=== PATIENT | female | born 1935 | race Caucasian/White ===

== ENCOUNTER 2019-06-07 09:46 | Outpatient (CLI) | payer MEDICARE, MEDICAID | END 2019-06-07 23:59 | disposition home or self-care (01) | LOC: VAS 09:46 | PROVIDERS: ATTEND Family Medicine | DX: I65.23 Occlusion and stenosis of bilateral carotid arteries (principal); R42 Dizziness and giddiness | CPT/HCPCS: 93880 ==

== ENCOUNTER 2021-04-18 10:26 | Outpatient (CLI) | payer MEDICARE, MEDICAID | END 2021-04-18 23:59 | disposition home or self-care (01) | LOC: RAD 10:26 | PROVIDERS: ATTEND Family Medicine | DX: M47.816 Spondylosis without myelopathy or radiculopathy, lumbar region (principal); M48.061 Spinal stenosis, lumbar region without neurogenic claudication; N28.1 Cyst of kidney, acquired | CPT/HCPCS: 72148 ==

== ENCOUNTER 2021-06-16 08:12 | Emergency (ER) | payer OTHER, MEDICAID ==
[~2021-06-16] VITALS: Ht 152.4 cm; Wt 88.6 kg
[~2021-06-16 08:12] MED LIST: DEXA4TAB67 PO; DEXL30CA3 PO; LEVO100T9 PO; LISI20TA28 PO; METO-395 PO
--- NOTE | 2021-06-16 08:23 | NUR ---
PTS DAUGHTER AWILDA CORRALES CALLED AND LEFT PHONE #:
[2021-06-16 09:13] LABS: BASOPHILS % (AUTO) 0.7 % (0-1); EOSINOPHILS # (AUTO) 0.1 X10'3 (0-0.9); EOSINOPHILS % (AUTO) 0.9 % (0-6); HEMATOCRIT 39.7 % (35.0-45.0); HEMOGLOBIN 13.4 g/dl (12.0-16.0); LYMPHOCYTES # (AUTO) 1.6 X10'3 (1.1-4.8); LYMPHOCYTES % (AUTO) 27.9 % (21-51); MEAN CORPUSCULAR HEMOGLOBIN 30.9 PG (27.0-31.0); MEAN CORPUSCULAR HGB CONC 33.7 g/dL (33.0-36.5); MEAN CORPUSCULAR VOLUME 91.7 FL (78-98); MEAN PLATELET VOLUME 8.5 FL (7.4-10.4); MONOCYTES # (AUTO) 0.6 X10'3 (0-0.9); MONOCYTES % (AUTO) 10.9 % (2-12); NEUTROPHILS # (AUTO) 3.3 X10'3 (1.8-7.7); NEUTROPHILS % (AUTO) 59.6 % (42-75); PLATELET COUNT 236 X10'3 (140-440); RED BLOOD COUNT 4.33 X10'6 (4.20-5.60); RED CELL DISTRIBUTION WIDTH 15.5 % (11.5-14.5); WHITE BLOOD COUNT 5.6 X10'3 (4.5-11.0)
[2021-06-16 09:25] LABS: ALANINE AMINOTRANSFERASE 25 U/L (12-78); ALBUMIN 3.4 G/DL (3.4-5.0); ALBUMIN/GLOBULIN RATIO 0.8 (1.1-1.5); ALKALINE PHOSPHATASE 105 IU/L (46-116); ASPARTATE AMINO TRANSFERASE 20 U/L (10-37); BILIRUBIN,TOTAL 0.6 MG/DL (0.1-1.0); BLOOD UREA NITROGEN 13 MG/DL (7-18); BUN/CREATININE RATIO 14.9 (6.6-38.0); CALCIUM 9.4 MG/DL (8.5-10.1); CREATININE 0.87 MG/DL (0.40-0.90); GLUCOSE 147 MG/DL (70-104); TOTAL CARBON DIOXIDE 27.2 MMOL/L (24-32); TOTAL PROTEIN 7.5 G/DL (6.4-8.2); eGFR 62 ML/MIN
[2021-06-16 09:29] LABS: ANION GAP 6 (8-16); CHLORIDE 104 MMOL/L (99-107); POTASSIUM 4.2 MMOL/L (3.5-5.1); SODIUM 137 MMOL/L (135-145)
[2021-06-16 09:34] LABS: MAGNESIUM 1.9 MG/DL (1.5-2.4)
[2021-06-16] MEDS ORDERED: magnesium 2GM in 50ml NS 50 ML IV ONE (10:35)
[2021-06-16] MEDS ORDERED: AMIO200T61 PO (10:54)
--- NOTE | 2021-06-16 11:54 | NUR ---
PATIENT ASLEEP, NO SIGNS OF DISTRESS NOTED, IVF INFUSION WNL.
[2021-06-16 12:57] VITALS: BP 116/70
== END 2021-06-16 12:58 | disposition home or self-care (01) ==
LOC: ER 08:13
DX: I48.0 Paroxysmal atrial fibrillation (principal); I10 Essential (primary) hypertension; E11.9 Type 2 diabetes mellitus without complications; Z86.16 Personal history of COVID-19; Z95.0 Presence of cardiac pacemaker; Z88.8 Allergy status to other drugs, medicaments and biological substances; Z79.899 Other long term (current) drug therapy
CPT/HCPCS: 36415; 71045; 80053; 83735; 83880; 84484; 85025; 93005; 96365; 96366; 99285; J3475

== ENCOUNTER 2022-02-28 14:50 | Emergency (ER) | payer OTHER, MEDICAID ==
[~2022-02-28] VITALS: Ht 152.4 cm; Wt 93.2 kg
[2022-02-28 15:25] VITALS: BP 153/88
[2022-02-28 19:38] LABS: CLARITY,URINE CLEAR (Clear); COLOR,URINE YELLOW (Yellow); GLUCOSE, URINE NEGATIVE (Neg); KETONES,URINE NEGATIVE (Neg); LEUKOCYTE ESTERASE ,URINE NEGATIVE (Neg); NITRITES, URINE NEGATIVE (Neg); OCCULT BLOOD,URINE TRACE-INTACT (Neg); PH,URINE 5.5 (4.8-8.0); PROTEIN,URINE NEGATIVE (Neg); UROBILINOGEN,URINE 0.2 E.U/dL (0.2-1.0)
[2022-02-28 19:52] LABS: BASOPHILS % (AUTO) 0.3 % (0-1); EOSINOPHILS # (AUTO) 0.1 X10'3 (0-0.9); EOSINOPHILS % (AUTO) 2.2 % (0-6); HEMOGLOBIN 11.7 g/dl (12.0-16.0); LYMPHOCYTES # (AUTO) 1.2 X10'3 (1.1-4.8); LYMPHOCYTES % (AUTO) 21.1 % (21-51); MEAN CORPUSCULAR HEMOGLOBIN 29.9 PG (27.0-31.0); MEAN CORPUSCULAR HGB CONC 33.3 g/dL (33.0-36.5); MEAN CORPUSCULAR VOLUME 89.7 FL (78-98); MEAN PLATELET VOLUME 8.1 FL (7.4-10.4); MONOCYTES # (AUTO) 0.8 X10'3 (0-0.9); MONOCYTES % (AUTO) 14.4 % (2-12); NEUTROPHILS # (AUTO) 3.6 X10'3 (1.8-7.7); PLATELET COUNT 223 X10'3 (140-440); RED CELL DISTRIBUTION WIDTH 14.6 % (11.5-14.5); WHITE BLOOD COUNT 5.9 X10'3 (4.5-11.0)
[2022-02-28 20:05] LABS: BACTERIA,URINE FEW /HPF (Neg); MUCUS STRANDS NONE SEEN /LPF (Neg); RBC,URINE 0-2 /HPF (0-2); SQUAMOUS EPITHELIAL CELL,UR MODERATE /LPF (FEW); UA COLLECTION TYPE CLN CATCH MIDSTREAM; WBC,URINE 0-4 /HPF (0-4)
[2022-02-28 20:15] LABS: ALANINE AMINOTRANSFERASE 170 U/L (12-78); ALBUMIN 3.5 G/DL (3.4-5.0); ALBUMIN/GLOBULIN RATIO 0.9 (1.1-1.5); ALKALINE PHOSPHATASE 220 IU/L (46-116); ANION GAP 6 (8-16); ASPARTATE AMINO TRANSFERASE 75 U/L (10-37); BILIRUBIN,TOTAL 0.7 MG/DL (0.1-1.0); BLOOD UREA NITROGEN 10 MG/DL (7-18); BUN/CREATININE RATIO 9.3 (6.6-38.0); CHLORIDE 101 MMOL/L (99-107); CREATININE 1.07 MG/DL (0.40-0.90); GLUCOSE 122 MG/DL (70-104); POTASSIUM 3.3 MMOL/L (3.5-5.1); SODIUM 138 MMOL/L (135-145); TOTAL CARBON DIOXIDE 31.2 MMOL/L (24-32); TOTAL PROTEIN 7.3 G/DL (6.4-8.2); eGFR 49 ML/MIN
--- NOTE | 2022-02-28 20:23 | NUR ---
STOOL SAMPLE TO LAB. STOOL IS LIQUID/WATER AND GREEN.
[2022-02-28] MEDS ORDERED: potassium Cl 20 mEq SR tablet PO ONE (20:55)
[2022-03-01 07:23] LABS: C DIFF SPECIMEN=DIARRHEA? ACCEPTABLE; C DIFFICILE TOXINS A&B NEGATIVE (Neg)
== END 2022-02-28 21:56 | disposition home or self-care (01) ==
LOC: ER 14:51
DX: R19.7 Diarrhea, unspecified (principal); R10.9 Unspecified abdominal pain; I11.9 Hypertensive heart disease without heart failure; E11.9 Type 2 diabetes mellitus without complications; Z88.5 Allergy status to narcotic agent; Z95.1 Presence of aortocoronary bypass graft
CPT/HCPCS: 36415; 80053; 81001; 83690; 85025; 86709; 87045; 87046; 87324; 87449; 99283

== ENCOUNTER 2022-08-03 14:27 | Emergency (ER) | payer BC, MEDICAID ==
[~2022-08-03] VITALS: Ht 152.4 cm; Wt 88.6 kg
[2022-08-03 14:40] LABS: BASOPHILS % (AUTO) 0.5 % (0-1); EOSINOPHILS # (AUTO) 0.1 X10'3 (0-0.9); EOSINOPHILS % (AUTO) 1.3 % (0-6); HEMATOCRIT 37.4 % (35.0-45.0); HEMOGLOBIN 12.6 g/dl (12.0-16.0); LYMPHOCYTES # (AUTO) 3.1 X10'3 (1.1-4.8); LYMPHOCYTES % (AUTO) 34.8 % (21-51); MEAN CORPUSCULAR HEMOGLOBIN 31.1 PG (27.0-31.0); MEAN CORPUSCULAR HGB CONC 33.7 g/dL (33.0-36.5); MEAN CORPUSCULAR VOLUME 92.4 FL (78-98); MEAN PLATELET VOLUME 7.9 FL (7.4-10.4); MONOCYTES # (AUTO) 0.8 X10'3 (0-0.9); MONOCYTES % (AUTO) 9.2 % (2-12); NEUTROPHILS # (AUTO) 4.8 X10'3 (1.8-7.7); NEUTROPHILS % (AUTO) 54.2 % (42-75); PLATELET COUNT 259 X10'3 (140-440); RED BLOOD COUNT 4.05 X10'6 (4.20-5.60); RED CELL DISTRIBUTION WIDTH 14.9 % (11.5-14.5); WHITE BLOOD COUNT 8.8 X10'3 (4.5-11.0)
[2022-08-03 14:55] LABS: ALANINE AMINOTRANSFERASE 14 U/L (12-78); ALBUMIN 3.5 G/DL (3.4-5.0); ALKALINE PHOSPHATASE 106 IU/L (46-116); ANION GAP 6 (8-16); ASPARTATE AMINO TRANSFERASE 17 U/L (10-37); BILIRUBIN,TOTAL 0.3 MG/DL (0.1-1.0); BLOOD UREA NITROGEN 22 MG/DL (7-18); BUN/CREATININE RATIO 16.7 (10.0-20.0); CHLORIDE 104 MMOL/L (99-107); CREATININE 1.32 MG/DL (0.40-0.90); GLUCOSE 123 MG/DL (70-104); POTASSIUM 4.4 MMOL/L (3.5-5.1); SODIUM 140 MMOL/L (135-145); TOTAL CARBON DIOXIDE 29.7 MMOL/L (24-32); eGFR 38 ML/MIN
[2022-08-03 15:03] LABS: MAGNESIUM 1.9 MG/DL (1.5-2.4)
[2022-08-03] MEDS ORDERED: metoprolol tartrate 1mg/ml inj IV ONE ×2 (16:00→16:35)
--- NOTE | 2022-08-03 16:47 | NUR ---
Call placed to [employer] rep to have pt pacemaker interigated. This RN spoke with Will at [employer] and he stated he was paging this out stat.
--- NOTE | 2022-08-03 17:04 | NUR ---
Adina called back and will be faxing over the interigation report.
[2022-08-03 18:10] VITALS: BP 97/66
--- NOTE | 2022-08-03 19:51 | NUR ---
IV DC'D PT BEING DISCHARGED DRESSING APPLIED
== END 2022-08-03 19:54 | disposition home or self-care (01) ==
LOC: ER 14:28
DX: R00.2 Palpitations (principal); I11.9 Hypertensive heart disease without heart failure; E11.9 Type 2 diabetes mellitus without complications; Z88.5 Allergy status to narcotic agent; Z79.899 Other long term (current) drug therapy; Z79.1 Long term (current) use of non-steroidal anti-inflammatories (NSAID); Z79.2 Long term (current) use of antibiotics
CPT/HCPCS: 36415; 71045; 80053; 83735; 83880; 84484; 85025; 93005; 96374; 96375; 99285; J3490

== ENCOUNTER 2022-09-01 09:43 | Emergency (ER) | payer BC, MEDICAID ==
[~2022-09-01] VITALS: Ht 152.4 cm; Wt 87.7 kg
[2022-09-01] MEDS ORDERED: metoclopramide 5 mg/ml inj IV ONE (09:45)
[2022-09-01] MEDS ORDERED: sucralfate 1 gm tablet PO ONE (09:45)
[2022-09-01] MEDS ORDERED: LIDOcaine Viscous 15ml cup MM ONE (09:45)
[2022-09-01] MEDS ORDERED: mag hydrox/Alum hydrox/simeth 30ml oral suspension PO ONE (09:45)
[2022-09-01] MEDS: diatr meglu/diatrizoate 30ml oral sol.-(3 dose) bottle PO SCH ×3 (09:45→11:15)
[2022-09-01] MEDS ORDERED: famotidine/PF 10 mg/ml inj IV ONE (09:45)
[2022-09-01] MEDS ORDERED: normal saline 1000ML IV soln IVB ONE (09:45)
[2022-09-01] MEDS ORDERED: IOHEXOL 12MG/ML oral solution 500 ML BOTTLE PO ONE (09:45)
[2022-09-01 09:50] VITALS: BP 135/100
[2022-09-01 10:09] LABS: BASOPHILS % (AUTO) 0.6 % (0-1); EOSINOPHILS % (AUTO) 0.3 % (0-6); HEMATOCRIT 37.7 % (35.0-45.0); HEMOGLOBIN 12.3 g/dl (12.0-16.0); LYMPHOCYTES # (AUTO) 1.2 X10'3 (1.1-4.8); LYMPHOCYTES % (AUTO) 16.5 % (21-51); MEAN CORPUSCULAR HEMOGLOBIN 30.7 PG (27.0-31.0); MEAN CORPUSCULAR HGB CONC 32.7 g/dL (33.0-36.5); MEAN CORPUSCULAR VOLUME 93.8 FL (78-98); MEAN PLATELET VOLUME 8.2 FL (7.4-10.4); MONOCYTES # (AUTO) 0.8 X10'3 (0-0.9); MONOCYTES % (AUTO) 11.2 % (2-12); NEUTROPHILS # (AUTO) 5.3 X10'3 (1.8-7.7); NEUTROPHILS % (AUTO) 71.4 % (42-75); PLATELET COUNT 231 X10'3 (140-440); RED BLOOD COUNT 4.02 X10'6 (4.20-5.60); RED CELL DISTRIBUTION WIDTH 15.5 % (11.5-14.5); WHITE BLOOD COUNT 7.5 X10'3 (4.5-11.0)
[2022-09-01 10:22] LABS: ALANINE AMINOTRANSFERASE 45 U/L (12-78); ALBUMIN 3.7 G/DL (3.4-5.0); ALBUMIN/GLOBULIN RATIO 1.2 (1.1-1.5); ALKALINE PHOSPHATASE 104 IU/L (46-116); ANION GAP 9 (8-16); ASPARTATE AMINO TRANSFERASE 31 U/L (10-37); BILIRUBIN,TOTAL 1.2 MG/DL (0.1-1.0); BLOOD UREA NITROGEN 27 MG/DL (7-18); BUN/CREATININE RATIO 20.6 (10.0-20.0); CHLORIDE 102 MMOL/L (99-107); CREATININE 1.31 MG/DL (0.40-0.90); GLUCOSE 134 MG/DL (70-104); LIPASE < 50 U/L (73-393); POTASSIUM 4.5 MMOL/L (3.5-5.1); SODIUM 139 MMOL/L (135-145); TOTAL PROTEIN 6.8 G/DL (6.4-8.2); eGFR 38 ML/MIN
[2022-09-01 13:27] LABS: CLARITY,URINE SLIGHTLY CLOUDY (Clear); COLOR,URINE YELLOW (Yellow); GLUCOSE, URINE NEGATIVE (Neg); KETONES,URINE NEGATIVE (Neg); LEUKOCYTE ESTERASE ,URINE NEGATIVE (Neg); NITRITES, URINE NEGATIVE (Neg); OCCULT BLOOD,URINE NEGATIVE (Neg); PROTEIN,URINE TRACE mg/dl (Neg); UROBILINOGEN,URINE 0.2 E.U/dL (0.2-1.0)
[2022-09-01 13:34] LABS: UA COLLECTION TYPE STRAIGHT CATH
[2022-09-01 13:36] LABS: BACTERIA,URINE 1+ /HPF (Neg); RBC,URINE 0-2 /HPF (0-2); SQUAMOUS EPITHELIAL CELL,UR FEW /LPF (FEW); WBC,URINE 0-4 /HPF (0-4)
[2022-09-01 13:37] LABS: AMORPHOUS URATES 1+; TRANSITIONAL EPI CELLS,URINE FEW /HPF
--- NOTE | 2022-09-01 14:40 | NUR ---
PT UP TO BEDSIDE COMMODE WITH NO ASSISTANCE. PT DID NOT WANT TO GET BACK IN GURNEY, WANTED TO SIT IN BEDSIDE CHAIR.
== END 2022-09-01 15:54 | disposition home or self-care (01) ==
LOC: ER 09:44
DX: K44.9 Diaphragmatic hernia without obstruction or gangrene (principal); K21.9 Gastro-esophageal reflux disease without esophagitis; I11.9 Hypertensive heart disease without heart failure; J44.9 Chronic obstructive pulmonary disease, unspecified; E11.9 Type 2 diabetes mellitus without complications; Z88.5 Allergy status to narcotic agent; Z79.899 Other long term (current) drug therapy; Z79.1 Long term (current) use of non-steroidal anti-inflammatories (NSAID)
CPT/HCPCS: 36415; 71045; 74176; 80053; 81001; 83690; 85025; 87088; 96361; 96374; 96375; 99285; J2765; J3490; J7030; A4353; Q9963

== ENCOUNTER 2022-09-09 11:29 | Day surgery (SDC) | payer BC, MEDICAID ==
[2022-09-09] VITALS (11 sets, daily range): BP systolic 107–131; BP diastolic 54–80
[~2022-09-09] VITALS: Ht 152.4 cm; Wt 91.3 kg
[2022-09-09] MEDS ORDERED: RIVA20TA PO (11:53)
[2022-09-09] MEDS ORDERED: METO200T49 PO (11:53)
[2022-09-09] MEDS ORDERED: AMIO200T61 PO (11:53)
[2022-09-09] MEDS ORDERED: FURO20TA4 PO (11:53)
[2022-09-09] MEDS ORDERED: SUCR1TAB PO (11:53)
[2022-09-09] MEDS ORDERED: MIDAZolam 1mg/ml 10ml vial IV ONE (12:00)
[2022-09-09] MEDS ORDERED: fentaNYL/PF 50MCG/1 ML 2ML syringe IV ONE (12:00)
[2022-09-09] MEDS ORDERED: normal saline 1000ml 1,000 ML IV SCH (12:00)
== END 2022-09-09 14:55 | disposition home or self-care (01) ==
LOC: SSTAY O 11:29
PROVIDERS: ATTEND Student in an Organized Health Care Education/Training Program
DX: I48.0 Paroxysmal atrial fibrillation (principal); E03.9 Hypothyroidism, unspecified; I11.0 Hypertensive heart disease with heart failure; I50.9 Heart failure, unspecified; E11.9 Type 2 diabetes mellitus without complications; J44.9 Chronic obstructive pulmonary disease, unspecified; Z95.0 Presence of cardiac pacemaker; Z79.899 Other long term (current) drug therapy; Z88.5 Allergy status to narcotic agent
CPT/HCPCS: 36415; 82948; 85610; 92960; 93005; J2250; J3010; J7030; A4620

== ENCOUNTER 2024-01-02 17:22 | Inpatient (IN) | payer BC, MEDICAID ==
[~2024-01-02] VITALS: Ht 165.1 cm; Wt 96.8 kg
[~2024-01-02 17:22] MED LIST changes: +AMI200T PO; -DEXA4TAB67 PO; +FURO20TA4 PO; -LISI20TA28 PO; -METO-395 PO; +METO200T37 PO; +RIVA20TA PO; +SUCR1TAB PO
[2024-01-02 17:58] LABS: BASOPHILS % (AUTO) 0.6 % (0-1); EOSINOPHILS # (AUTO) 0.1 X10'3 (0-0.9); EOSINOPHILS % (AUTO) 1.2 % (0-6); HEMATOCRIT 35.1 % (35.0-45.0); HEMOGLOBIN 11.7 g/dl (12.0-16.0); LYMPHOCYTES # (AUTO) 1.6 X10'3 (1.1-4.8); LYMPHOCYTES % (AUTO) 23.5 % (21-51); MEAN CORPUSCULAR HEMOGLOBIN 30.6 PG (27.0-31.0); MEAN CORPUSCULAR HGB CONC 33.3 g/dL (33.0-36.5); MEAN CORPUSCULAR VOLUME 92.1 FL (78-98); MEAN PLATELET VOLUME 9.6 FL (7.4-10.4); MONOCYTES # (AUTO) 0.7 X10'3 (0-0.9); MONOCYTES % (AUTO) 10.6 % (2-12); NEUTROPHILS # (AUTO) 4.4 X10'3 (1.8-7.7); NEUTROPHILS % (AUTO) 64.1 % (42-75); PLATELET COUNT 203 X10'3 (140-440); RED BLOOD COUNT 3.81 X10'6 (4.20-5.60); RED CELL DISTRIBUTION WIDTH 14.2 % (11.5-14.5); WHITE BLOOD COUNT 6.9 X10'3 (4.5-11.0)
[2024-01-02] MEDS: magnesium sulf-water 2g/50mL 50 ML IV ONE (18:18)
[2024-01-02 18:20] LABS: ALBUMIN 3.4 G/DL (3.4-5.0); ANION GAP 9 (8-16); BLOOD UREA NITROGEN 22 MG/DL (7-18); BUN/CREATININE RATIO 17.7 (10.0-20.0); CHLORIDE 102 MMOL/L (99-107); CREATININE 1.24 MG/DL (0.40-0.90); GLUCOSE 189 MG/DL (70-104); MAGNESIUM 1.7 MG/DL (1.5-2.4); POTASSIUM 4.1 MMOL/L (3.5-5.1); PRO BRAIN NATRIURETIC PEPTIDE 8050 PG/ML (0-450); SODIUM 138 MMOL/L (135-145); TOTAL CARBON DIOXIDE 27.2 MMOL/L (24-32); eCRCL 29 ML/MIN; eGFR 41 ML/MIN
[2024-01-02] MEDS ORDERED: bumetanide 0.25mg/ml 4ml vial IV SCH (20:10)
[2024-01-02] MEDS ORDERED: magnesium sulf-water 2g/50mL 50 ML IV PRN (21:20)
[2024-01-02] MEDS ORDERED: mag hydrox/Alum hydrox/simeth 30ml oral suspension PO PRN (21:20)
[2024-01-02] MEDS ORDERED: ondansetron/PF 4mg/2ml inj IV PRN (21:20)
[2024-01-02] MEDS ORDERED: magnesium sulf-water 4G/100mL 100 ML IV PRN (21:20)
[2024-01-02] MEDS ORDERED: magnesium hydroxide 30ml (MOM) UD suspension PO PRN (21:20)
[2024-01-02] MEDS ORDERED: potassium Cl 20 mEq SR tablet PO PRN ×2 (21:20)
[2024-01-02] MEDS ORDERED: potassium Cl 40MEQ/1/2NS 520ml 520 ML IV PRN (21:20)
[2024-01-02] MEDS ORDERED: magnesium Cl slow-release 64mg tablet PO PRN (21:20)
[2024-01-02] MEDS ORDERED: acetaminophen 325mg tablet PO PRN (21:20)
[2024-01-02 21:51] LABS: PHOSPHORUS 3.5 MG/DL (2.3-4.5)
[2024-01-02] MEDS: furosemide 40mg/4ml inj IV SCH (21:55)
--- NOTE | 2024-01-02 22:11 | NUR ---
spoke with md Browne admitting md. instructed to administer bumex 1mg iv at this time and to not administer lasix 40mg.
[2024-01-02] MEDS: bumetanide 0.25mg/ml 4ml vial IV ONE (22:15)
[2024-01-02 23:42] LABS: BILIRUBIN,URINE NEGATIVE (Neg); CLARITY,URINE CLEAR (Clear); COLOR,URINE YELLOW (Yellow); GLUCOSE, URINE NEGATIVE (Neg); KETONES,URINE NEGATIVE (Neg); LEUKOCYTE ESTERASE ,URINE NEGATIVE (Neg); NITRITES, URINE NEGATIVE (Neg); OCCULT BLOOD,URINE NEGATIVE (Neg); PROTEIN,URINE NEGATIVE (Neg); UROBILINOGEN,URINE 0.2 E.U/dL (0.2-1.0)
[2024-01-02 23:45] LABS: UA COLLECTION TYPE VOIDED
[2024-01-03] VITALS (8 sets, daily range): BP systolic 108–117; BP diastolic 58–73; PULSE 98–119; RESP 16–20; TEMP 97–97.8; O2SAT 93–99
--- NOTE | 2024-01-03 04:20 | NUR ---
Called resident to clarify DNR vs full code status. Resident wants patient to be DNR. Notified resident that order to change code status has to be placed by physician.
--- NOTE | 2024-01-03 06:35 | NUR ---
Patient in room PCU 3012. I have received report from PARAS Burt and had the opportunity to ask questions and assume patient care.
[2024-01-03 07:01] LABS: BASOPHILS % (AUTO) 0.4 % (0-1); EOSINOPHILS # (AUTO) 0.1 X10'3 (0-0.9); EOSINOPHILS % (AUTO) 0.9 % (0-6); HEMATOCRIT 32.5 % (35.0-45.0); HEMOGLOBIN 10.8 g/dl (12.0-16.0); LYMPHOCYTES # (AUTO) 1.2 X10'3 (1.1-4.8); LYMPHOCYTES % (AUTO) 21.7 % (21-51); MEAN CORPUSCULAR HEMOGLOBIN 30.6 PG (27.0-31.0); MEAN CORPUSCULAR HGB CONC 33.2 g/dL (33.0-36.5); MEAN CORPUSCULAR VOLUME 92.1 FL (78-98); MEAN PLATELET VOLUME 9.5 FL (7.4-10.4); MONOCYTES # (AUTO) 0.6 X10'3 (0-0.9); MONOCYTES % (AUTO) 11.7 % (2-12); NEUTROPHILS # (AUTO) 3.5 X10'3 (1.8-7.7); NEUTROPHILS % (AUTO) 65.3 % (42-75); PLATELET COUNT 161 X10'3 (140-440); RED BLOOD COUNT 3.53 X10'6 (4.20-5.60); RED CELL DISTRIBUTION WIDTH 14.2 % (11.5-14.5); WHITE BLOOD COUNT 5.4 X10'3 (4.5-11.0)
[2024-01-03 07:17] LABS: ALBUMIN 3.2 G/DL (3.4-5.0); ANION GAP 10 (8-16); BLOOD UREA NITROGEN 20 MG/DL (7-18); BUN/CREATININE RATIO 16.9 (10.0-20.0); CHLORIDE 103 MMOL/L (99-107); CHOL/HDL RATIO 2.4 (0.00-4.99); CHOLESTEROL 108 MG/DL (0-200); CREATININE 1.18 MG/DL (0.40-0.90); GLUCOSE 156 MG/DL (70-104); HDL CHOLESTEROL 45 MG/DL (35-60); LDL CHOLESTEROL 53 MG/DL (50-100); POTASSIUM 3.8 MMOL/L (3.5-5.1); SODIUM 143 MMOL/L (135-145); TOTAL CARBON DIOXIDE 29.9 MMOL/L (24-32); TRIGLYCERIDES 77 MG/DL (20-135); eCRCL 30 ML/MIN; eGFR 43 ML/MIN
[2024-01-03] MEDS ORDERED: dextrose 50%-water 50ml dispensing syringe IV PRN ×2 (07:35)
[2024-01-03] MEDS ORDERED: glucagon, human recombinant 1mg kit SUBCUT PRN (07:35)
[2024-01-03] MEDS ORDERED: DEXTROSE 15 GM of carb/4 tabs (each vial/BOTTLE has 4 tablets) PO PRN ×2 (07:35)
[2024-01-03] MEDS ORDERED: furosemide 40mg/4ml inj IV SCH (08:00)
[2024-01-03 08:23] LABS: FREE T4 (FREE THYROXINE) 1.29 NG/DL (0.73-1.40); MAGNESIUM 2.1 MG/DL (1.5-2.4)
[2024-01-03] MEDS: K and/or MAG REPLACEMENT MC SCH (09:14)
[2024-01-03] MEDS: levoTHYROXINE 100mcg tablet PO SCH (10:20)
[2024-01-03] MEDS: amiodarone 200mg tablet PO SCH (10:20)
[2024-01-03] MEDS: pantoprazole 40mg Tablet.DR PO SCH (10:20)
[2024-01-03] MEDS: INSULIN LISPRO 100 UNIT/ML INSULN.PEN MULTI-DOSE SQ SCH (10:21)
[2024-01-03] MEDS: metoprolol succinate 25mg (24-HOUR) SR. Tablet PO SCH (10:21)
--- NOTE | 2024-01-03 10:47 | NUR ---
DM consult: Pt presents with a hx of T2DM and an A1c of 8% this admit. A1c is well controlled for advanced age per ADA guidelines thus diabetes nutrition education is not warranted at this time. Will continue to monitor and make recommendations as appropriate. Addendum: 01/03/24 at [address] Amended: Links added.
[2024-01-03] MEDS: metoprolol succinate 25mg (24-HOUR) SR. Tablet PO ONE (12:50)
[2024-01-03] MEDS: rivaroxaban 20mg tablet PO SCH (18:04)
--- NOTE | 2024-01-03 18:25 | NUR ---
Problems reprioritized. Patient report given, questions answered & plan of care reviewed with PARAS Burt.
[2024-01-03] MEDS: ondansetron 4mg rapidly disintigrating tab PO PRN (18:52)
[2024-01-03] MEDS: furosemide 40mg/4ml inj IV SCH (20:04)
[2024-01-03] MEDS: insulin glargine (Lantus) pen - multi-dose SQ SCH (20:13)
[2024-01-04] VITALS (8 sets, daily range): BP systolic 93–112; BP diastolic 43–78; PULSE 69–122; RESP 18–20; TEMP 96.6–98.7; O2SAT 94–97
[2024-01-04 06:37] LABS: BASOPHILS % (AUTO) 0.7 % (0-1); EOSINOPHILS # (AUTO) 0.1 X10'3 (0-0.9); EOSINOPHILS % (AUTO) 1.5 % (0-6); HEMATOCRIT 32.3 % (35.0-45.0); HEMOGLOBIN 10.7 g/dl (12.0-16.0); LYMPHOCYTES # (AUTO) 1.6 X10'3 (1.1-4.8); LYMPHOCYTES % (AUTO) 28.1 % (21-51); MEAN CORPUSCULAR HEMOGLOBIN 30.1 PG (27.0-31.0); MEAN CORPUSCULAR HGB CONC 33.1 g/dL (33.0-36.5); MEAN CORPUSCULAR VOLUME 91.1 FL (78-98); MEAN PLATELET VOLUME 9.1 FL (7.4-10.4); MONOCYTES # (AUTO) 0.7 X10'3 (0-0.9); NEUTROPHILS # (AUTO) 3.2 X10'3 (1.8-7.7); NEUTROPHILS % (AUTO) 56.7 % (42-75); PLATELET COUNT 185 X10'3 (140-440); RED BLOOD COUNT 3.54 X10'6 (4.20-5.60); RED CELL DISTRIBUTION WIDTH 14.1 % (11.5-14.5); WHITE BLOOD COUNT 5.7 X10'3 (4.5-11.0)
[2024-01-04 06:49] LABS: ANION GAP 7 (8-16); BLOOD UREA NITROGEN 24 MG/DL (7-18); BUN/CREATININE RATIO 16.9 (10.0-20.0); CALCIUM 8.3 MG/DL (8.5-10.1); CHLORIDE 103 MMOL/L (99-107); CREATININE 1.42 MG/DL (0.40-0.90); GLUCOSE 106 MG/DL (70-104); MAGNESIUM 1.7 MG/DL (1.5-2.4); POTASSIUM 3.8 MMOL/L (3.5-5.1); SODIUM 143 MMOL/L (135-145); eCRCL 25 ML/MIN; eGFR 35 ML/MIN
--- NOTE | 2024-01-04 06:59 | NUR ---
Patient in room PCU 3012. I have received report from MICHAEL CRAIN and had the opportunity to ask questions and assume patient care.
[2024-01-04] MEDS: metoprolol succinate 25mg (24-HOUR) SR. Tablet PO SCH (07:58)
[2024-01-04] MEDS: digoxin 125mcg (0.125mg) tablet PO SCH (08:09)
--- NOTE | 2024-01-04 18:57 | NUR ---
Problems reprioritized. Patient report given to KIMBERLEE CRAIN, questions answered & plan of care reviewed with .
[2024-01-05 02:00] VITALS: BP 86/65; PULSE 111; RESP 18; TEMP 97.5; O2SAT 97
[2024-01-05 07:06] LABS: BASOPHILS % (AUTO) 0.6 % (0-1); EOSINOPHILS # (AUTO) 0.1 X10'3 (0-0.9); EOSINOPHILS % (AUTO) 1.2 % (0-6); HEMATOCRIT 32.5 % (35.0-45.0); HEMOGLOBIN 10.9 g/dl (12.0-16.0); LYMPHOCYTES # (AUTO) 1.3 X10'3 (1.1-4.8); LYMPHOCYTES % (AUTO) 25.7 % (21-51); MEAN CORPUSCULAR HEMOGLOBIN 31.1 PG (27.0-31.0); MEAN CORPUSCULAR HGB CONC 33.6 g/dL (33.0-36.5); MEAN CORPUSCULAR VOLUME 92.5 FL (78-98); MEAN PLATELET VOLUME 9.1 FL (7.4-10.4); MONOCYTES # (AUTO) 0.6 X10'3 (0-0.9); MONOCYTES % (AUTO) 12.6 % (2-12); NEUTROPHILS # (AUTO) 3.1 X10'3 (1.8-7.7); NEUTROPHILS % (AUTO) 59.9 % (42-75); PLATELET COUNT 186 X10'3 (140-440); RED BLOOD COUNT 3.51 X10'6 (4.20-5.60); RED CELL DISTRIBUTION WIDTH 14.4 % (11.5-14.5); WHITE BLOOD COUNT 5.1 X10'3 (4.5-11.0)
[2024-01-05 07:32] LABS: ALBUMIN 3.1 G/DL (3.4-5.0); ANION GAP 5 (8-16); BLOOD UREA NITROGEN 29 MG/DL (7-18); BUN/CREATININE RATIO 17.4 (10.0-20.0); CALCIUM 8.6 MG/DL (8.5-10.1); CHLORIDE 103 MMOL/L (99-107); CREATININE 1.67 MG/DL (0.40-0.90); GLUCOSE 102 MG/DL (70-104); MAGNESIUM 1.8 MG/DL (1.5-2.4); POTASSIUM 3.6 MMOL/L (3.5-5.1); SODIUM 141 MMOL/L (135-145); TOTAL CARBON DIOXIDE 33.1 MMOL/L (24-32); eCRCL 21 ML/MIN; eGFR 29 ML/MIN
[2024-01-05 08:20] VITALS: BP 113/50; PULSE 120
[2024-01-05 08:52] VITALS: BP 100/56; PULSE 122; RESP 21; O2SAT 94
[2024-01-05] MEDS: normal saline 500ml IV soln 250 ML IV ONE (11:49)
[2024-01-05 18:00] VITALS: BP 121/66; PULSE 89; RESP 24; TEMP 97.4; O2SAT 95
[2024-01-05 20:00] VITALS: BP_SYST 101; BP_SYST 107; BP_SYST 98; BP_DIAS 63; BP_DIAS 65; BP_DIAS 67; PULSE 103; PULSE 105; PULSE 99; RESP 15; O2SAT 96
[2024-01-05] MEDS: diltiazem CD 120mg capsule (once-daily) PO SCH (21:58)
[2024-01-05 22:00] VITALS: BP 109/77; PULSE 102; RESP 19; TEMP 98.1; O2SAT 96
[2024-01-06 02:00] VITALS: BP 104/58; PULSE 75; RESP 15; TEMP 97.7; O2SAT 97
--- NOTE | 2024-01-06 06:31 | NUR ---
Problems reprioritized. Patient report given, questions answered & plan of care reviewed with PARAS Garrido.
--- NOTE | 2024-01-06 06:45 | NUR ---
Patient in room PCU 3013. I have received report from Perlita and had the opportunity to ask questions and assume patient care. Addendum: 01/06/24 at 0646 by Hema Diaz RN Amended: Links added.
[2024-01-06 07:00] VITALS: BP 107/57; PULSE 92; RESP 14; TEMP 97.7; O2SAT 96
[2024-01-06] MEDS: sod chloride 0.9% 10ml flush syringe IV SCH (07:44)
[2024-01-06 07:48] LABS: BASOPHILS % (AUTO) 0.6 % (0-1); EOSINOPHILS # (AUTO) 0.1 X10'3 (0-0.9); EOSINOPHILS % (AUTO) 1.6 % (0-6); HEMATOCRIT 35.2 % (35.0-45.0); HEMOGLOBIN 11.7 g/dl (12.0-16.0); LYMPHOCYTES # (AUTO) 1.7 X10'3 (1.1-4.8); LYMPHOCYTES % (AUTO) 28.2 % (21-51); MEAN CORPUSCULAR HEMOGLOBIN 30.7 PG (27.0-31.0); MEAN CORPUSCULAR HGB CONC 33.2 g/dL (33.0-36.5); MEAN CORPUSCULAR VOLUME 92.5 FL (78-98); MEAN PLATELET VOLUME 9.1 FL (7.4-10.4); MONOCYTES # (AUTO) 0.6 X10'3 (0-0.9); MONOCYTES % (AUTO) 9.7 % (2-12); NEUTROPHILS # (AUTO) 3.6 X10'3 (1.8-7.7); NEUTROPHILS % (AUTO) 59.9 % (42-75); PLATELET COUNT 226 X10'3 (140-440); RED CELL DISTRIBUTION WIDTH 14.2 % (11.5-14.5)
[2024-01-06 07:55] LABS: ALBUMIN 3.3 G/DL (3.4-5.0); ANION GAP 6 (8-16); BLOOD UREA NITROGEN 29 MG/DL (7-18); BUN/CREATININE RATIO 21.2 (10.0-20.0); CALCIUM 9.1 MG/DL (8.5-10.1); CHLORIDE 103 MMOL/L (99-107); CREATININE 1.37 MG/DL (0.40-0.90); GLUCOSE 108 MG/DL (70-104); MAGNESIUM 1.9 MG/DL (1.5-2.4); SODIUM 141 MMOL/L (135-145); TOTAL CARBON DIOXIDE 32.3 MMOL/L (24-32); eCRCL 26 ML/MIN; eGFR 36 ML/MIN
[2024-01-06 08:00] VITALS: BP_SYST 107; BP_SYST 110; BP_DIAS 57; BP_DIAS 58; PULSE 92; PULSE 94; RESP 14; O2SAT 97
[2024-01-06 09:56] VITALS: BP 103/70; PULSE 105; RESP 14; TEMP 97.4; O2SAT 96
[2024-01-06] MEDS ORDERED: CARCD120C PO (11:46)
[2024-01-06] MEDS ORDERED: EMPA10TA PO (11:46)
== END 2024-01-06 12:49 | disposition home or self-care (01) | DRG 291 ==
LOC: ER 17:22 → ED HOLD 21:20 → PCU 3S 01-03 00:30
PROVIDERS: ADMIT Internal Medicine Critical Care Medicine; ATTEND Internal Medicine
DX: I11.0 Hypertensive heart disease with heart failure (principal); I50.33 Acute on chronic diastolic (congestive) heart failure; I48.91 Unspecified atrial fibrillation; J44.9 Chronic obstructive pulmonary disease, unspecified; E11.9 Type 2 diabetes mellitus without complications; E03.9 Hypothyroidism, unspecified; Z20.822 Contact with and (suspected) exposure to COVID-19; Z60.2 Problems related to living alone; Z66 Do not resuscitate; K21.9 Gastro-esophageal reflux disease without esophagitis; Z79.01 Long term (current) use of anticoagulants; Z88.5 Allergy status to narcotic agent; Z87.11 Personal history of peptic ulcer disease; Z79.899 Other long term (current) drug therapy; Z95.0 Presence of cardiac pacemaker; Z90.49 Acquired absence of other specified parts of digestive tract; Z90.710 Acquired absence of both cervix and uterus
CPT/HCPCS: 36415; 71045; 80048; 80061; 81003; 82948; 83036; 83735; 83880; 84100; 84145; 84439; 84443; 84484; 85025; 87081; 87811; 93005; 93306; 96365; 96366; 97116; 97161; 97530; 99285; G0378; J1815; J1940; J3490; J7040

== ENCOUNTER 2024-02-08 10:44 | Day surgery (SDC) | payer BC, MEDICAID ==
[2024-02-08] VITALS (10 sets, daily range): BP systolic 101–143; BP diastolic 54–106; PULSE 15–100; RESP 11–17; TEMP 98.1; O2SAT 94–98
[~2024-02-08] VITALS: Ht 152.4 cm; Wt 97.7 kg
[~2024-02-08 10:44] MED LIST changes: +CARCD120C PO; +EMPA10TA PO
[2024-02-08] MEDS ORDERED: DILT120C88 PO (11:30)
[2024-02-08] MEDS ORDERED: EMPA10TA PO (11:30)
[2024-02-08 11:52] LABS: BASOPHILS # (AUTO) 0.1 X10'3 (0-0.2); BASOPHILS % (AUTO) 0.8 % (0-1); EOSINOPHILS # (AUTO) 0.1 X10'3 (0-0.9); EOSINOPHILS % (AUTO) 0.8 % (0-6); HEMATOCRIT 37.3 % (35.0-45.0); LYMPHOCYTES # (AUTO) 1.3 X10'3 (1.1-4.8); LYMPHOCYTES % (AUTO) 20.7 % (21-51); MEAN CORPUSCULAR HEMOGLOBIN 29.7 PG (27.0-31.0); MEAN CORPUSCULAR HGB CONC 32.3 g/dL (33.0-36.5); MEAN PLATELET VOLUME 9.1 FL (7.4-10.4); MONOCYTES # (AUTO) 0.7 X10'3 (0-0.9); MONOCYTES % (AUTO) 11.2 % (2-12); NEUTROPHILS # (AUTO) 4.3 X10'3 (1.8-7.7); NEUTROPHILS % (AUTO) 66.5 % (42-75); PLATELET COUNT 200 X10'3 (140-440); RED BLOOD COUNT 4.05 X10'6 (4.20-5.60); RED CELL DISTRIBUTION WIDTH 15.1 % (11.5-14.5); WHITE BLOOD COUNT 6.5 X10'3 (4.5-11.0)
[2024-02-08 12:08] LABS: ALBUMIN 3.6 G/DL (3.4-5.0); ANION GAP 7 (8-16); BLOOD UREA NITROGEN 26 MG/DL (7-18); BUN/CREATININE RATIO 16.5 (10.0-20.0); CHLORIDE 105 MMOL/L (99-107); CREATININE 1.58 MG/DL (0.40-0.90); GLUCOSE 140 MG/DL (70-104); POTASSIUM 4.5 MMOL/L (3.5-5.1); SODIUM 142 MMOL/L (135-145); TOTAL CARBON DIOXIDE 30.5 MMOL/L (24-32); eCRCL 18 ML/MIN; eGFR 31 ML/MIN
[2024-02-08] MEDS: fentaNYL/PF 50MCG/1 ML 2ML syringe IV ONE (12:31)
[2024-02-08] MEDS: MIDAZolam 1mg/ml 10ml vial IV ONE (12:31)
[2024-02-08] MEDS: normal saline 1000ml 1,000 ML IV SCH (12:32)
[2024-02-08 12:43] LABS: INR 1.3 INR; PROTHROMBIN TIME 13.6 SECONDS (9.0-12.0)
== END 2024-02-08 14:00 | disposition home or self-care (01) ==
LOC: SSTAY O 10:44
PROVIDERS: ATTEND Student in an Organized Health Care Education/Training Program
DX: I48.0 Paroxysmal atrial fibrillation (principal); I11.0 Hypertensive heart disease with heart failure; I50.9 Heart failure, unspecified; E11.9 Type 2 diabetes mellitus without complications; E78.00 Pure hypercholesterolemia, unspecified; E03.9 Hypothyroidism, unspecified; J44.9 Chronic obstructive pulmonary disease, unspecified; Z79.01 Long term (current) use of anticoagulants; Z79.899 Other long term (current) drug therapy; Z88.5 Allergy status to narcotic agent
CPT/HCPCS: 36415; 80048; 85025; 85610; 92960; 93005; J2250; J3010; J7030

== ENCOUNTER 2024-07-01 11:05 | Outpatient (CLI) | payer BC, MEDICAID ==
[~2024-07-01 11:05] MED LIST changes: +DILT120C88 PO; -SUCR1TAB PO
[2024-07-01 11:41] LABS: HEMOGLOBIN 11.4 g/dl (12.0-16.0); MEAN CORPUSCULAR VOLUME 92.6 FL (78-98)
[2024-07-01 11:42] LABS: BASOPHILS # (AUTO) 0.1 X10'3 (0-0.2); BASOPHILS % (AUTO) 0.8 % (0-1); EOSINOPHILS # (AUTO) 0.1 X10'3 (0-0.9); HEMATOCRIT 34.3 % (35.0-45.0); LYMPHOCYTES % (AUTO) 17.3 % (21-51); MEAN CORPUSCULAR HEMOGLOBIN 30.7 PG (27.0-31.0); MEAN CORPUSCULAR HGB CONC 33.1 g/dL (33.0-36.5); MEAN PLATELET VOLUME 8.6 FL (7.4-10.4); MONOCYTES # (AUTO) 0.7 X10'3 (0-0.9); MONOCYTES % (AUTO) 12.1 % (2-12); NEUTROPHILS # (AUTO) 4.1 X10'3 (1.8-7.7); NEUTROPHILS % (AUTO) 68.8 % (42-75); PLATELET COUNT 189 X10'3 (140-440); RED BLOOD COUNT 3.71 X10'6 (4.20-5.60); RED CELL DISTRIBUTION WIDTH 13.6 % (11.5-14.5)
[2024-07-01 11:58] LABS: APTT 40 SECONDS (22-32); INR 1.6 INR; PROTHROMBIN TIME 16.3 SECONDS (9.0-12.0)
[2024-07-01 12:00] LABS: ALBUMIN 3.5 G/DL (3.4-5.0); ANION GAP 7 (8-16); BLOOD UREA NITROGEN 18 MG/DL (7-18); BUN/CREATININE RATIO 16.5 (10.0-20.0); CALCIUM 9.4 MG/DL (8.5-10.1); CHLORIDE 104 MMOL/L (99-107); CHOL/HDL RATIO 2.3 (0.00-4.99); CHOLESTEROL 125 MG/DL (0-200); CREATININE 1.09 MG/DL (0.40-0.90); GLUCOSE 170 MG/DL (70-104); HDL CHOLESTEROL 54 MG/DL (35-60); LDL CHOLESTEROL 57 MG/DL (50-100); POTASSIUM 4.5 MMOL/L (3.5-5.1); SODIUM 141 MMOL/L (135-145); TOTAL CARBON DIOXIDE 29.8 MMOL/L (24-32); TRIGLYCERIDES 69 MG/DL (20-135); eGFR 47 ML/MIN
== END 2024-07-01 23:59 | disposition home or self-care (01) ==
LOC: LAB 11:05 → EDSTATUS 07-05 20:00
PROVIDERS: ATTEND Student in an Organized Health Care Education/Training Program
DX: I10 Essential (primary) hypertension (principal); E78.49 Other hyperlipidemia; I48.91 Unspecified atrial fibrillation
CPT/HCPCS: 36415; 80048; 80061; 85025; 85610; 85730